=== PATIENT | female | born 1975 | race Caucasian/White ===

== ENCOUNTER → 2017-02-20 | Outpatient (CLI) | payer OTHER ==
[~2017-02-20] MED LIST: CIPROFLOXACIN500 M1 PO; DIPHENHIST50 MG PO; FAMOTIDINE20 MG PO; HYDROCODONE-AP1 EAC6 PO; LOMOTIL TABLET1 EACH PO; NOHOMEMEDICATIONS; NORCO 5-325 TA1 EACH PO; PEPCID20 MG PO; PREDNISONE 20 M20 M1 PO; PREDNISONE 20 M20 MG PO; XANAX 1 MG TABLE1 MG PO; ZOFRAN ODT4 MG PO
== END ==
LOC: M.NUC 07:15
DX: R93.2 Abnormal findings on diagnostic imaging of liver and biliary tract (principal); R11.0 Nausea

== ENCOUNTER 2017-04-06 05:45 | Emergency (ER) | payer OTHER ==
[~2017-04-06] VITALS: Ht 167.6 cm; Wt 90.7 kg
[~2017-04-06 05:45] MED LIST changes: -XANAX 1 MG TABLE1 MG PO
[2017-04-06 06:09] LABS: ABSOLUTE BASOPHILS 0.1 thou/uL (0.0-0.2); ABSOLUTE EOSINOPHILS 0.1 thou/uL (0.0-0.7); ABSOLUTE LYMPHOCYTES 2.9 thou/uL (0.8-5.3); ABSOLUTE MONOCYTES 0.6 thou/uL (0.0-1.2); ABSOLUTE NEUTROPHILS 4.6 thou/uL (1.6-8.1); BASOPHILS 0.7 %; EOSINOPHILS 1.6 %; HEMATOCRIT 44.2 % (37.0-47.0); HEMOGLOBIN 15.3 gm/dL (12.0-15.0); MCH 33.5 pg (26.0-34.0); MCHC 34.7 g/dL (28.0-37.0); MCV 96.7 fL (80.0-100.0); MONOCYTES 7.1 %; MPV 7.3 fl. (7.2-11.1); NUCLEATED RBCS 0 /100WBC; PLATELET COUNT* 271 thou/uL (150-400); POLYS 55.6 %; RBC 4.57 mil/uL (4.20-5.00); RDW-CV 12.6 % (10.5-14.5); WBC 8.2 thou/uL (4.0-11.0)
[2017-04-06 06:18] LABS: ANION GAP 13 mmol/L (7-16); BUN 8 mg/dL (7-18); CALCIUM 9.2 mg/dL (8.5-10.1); CHLORIDE 101 mmol/L (98-107); CO2 22 mmol/L (21-32); CREATININE 0.9 mg/dL (0.6-1.3); GLUCOSE 115 mg/dL (70-99); POTASSIUM 3.3 mmol/L (3.5-5.1); SODIUM 136 mmol/L (136-145)
[2017-04-06 06:28] LABS: ALBUMIN 4.2 g/dL (3.4-5.0); ALKALINE PHOSPHATASE 72 U/L (46-116); LIPASE 164 U/L (73-393); NT-PRO BRAIN NAT PEPTIDE 12 pg/mL (<300); SGOT 83 U/L (15-37); SGPT 145 U/L (30-65); TOTAL BILIRUBIN 0.8 mg/dL (<0.1-1.0); TOTAL PROTEIN 7.7 g/dL (6.4-8.2); TROPONIN-I LEVEL <0.06 ng/mL (<0.06)
[2017-04-06] MEDS ORDERED: XANAX 1 MG TABLE1 MG PO (06:47)
[2017-04-06 07:15] VITALS: BP 138/67
--- NOTE | 2017-04-06 15:58 | EKG ---
[place] [address] ELECTROCARDIOGRAM REPORT Name: LOWELLMARTHA KAY Room: [facility]#: [id number] Admission: 04/06/17 Attend Phys: Discharge: 04/06/17 Date of : 75 Report #: [id number] THIS REPORT FOR: //name// [facility] ED Test Date: 2017-04-06 Test Time: 05:49:29 Pat Name: MARTHA ETIENNE Department: Room: Gender: F International [employer]: : 1975 Requested By: Brit Oro Order Number: [id number] MD: Oracio Fregoso Measurements Intervals [place] Rate: 117 P: 68 [place]: 136 QRS: -24 QRSD: 89 T: 20 QT: 331 QTc: 462 Interpretive Statements Sinus tachycardia Probable left atrial enlargement Borderline left axis deviation Probable anterior infarct, old Baseline wander in lead(s) I Compared to ECG 05/18/2016 15:34:44 No significant changes Electronically Signed On 04-06-2017 15:58:24 [employer] by Oracio Fregoso [email or web address] <ELECTRONICALLY SIGNED> By: Oracio Fregoso MD, [facility] 04/06/17 1558 [id number] Oracio Fregoso MD, [facility] /EPI
== END 2017-04-06 07:15 | disposition home or self-care (01) ==
LOC: M.ERS 05:45
PROVIDERS: Emergency Medicine
DX: F41.9 Anxiety disorder, unspecified (principal); F10.99 Alcohol use, unspecified with unspecified alcohol-induced disorder; Z98.890 Other specified postprocedural states

== ENCOUNTER → 2017-07-14 | Outpatient (CLI) | payer OTHER ==
[~2017-07-14] MED LIST changes: +XANAX 1 MG TABLE1 MG PO
== END ==
LOC: M.RAD 14:52
DX: M79.645 Pain in left finger(s) (principal)

== ENCOUNTER 2017-09-17 12:31 | Emergency (ER) | payer OTHER ==
[~2017-09-17] VITALS: Ht 167.6 cm; Wt 79.3 kg
[2017-09-17] MEDS ORDERED: PEPCID20 MG PO (13:14)
[2017-09-17] MEDS ORDERED: PREDNISONE 20 M20 MG PO (13:14)
[2017-09-17 13:39] VITALS: BP 125/67
== END 2017-09-17 13:43 | disposition home or self-care (01) ==
LOC: M.ERS 12:31
DX: R21 Rash and other nonspecific skin eruption (principal); T78.1XXA Other adverse food reactions, not elsewhere classified, initial encounter; F41.9 Anxiety disorder, unspecified; X58.XXXA Exposure to other specified factors, initial encounter

== ENCOUNTER → 2018-11-16 | Outpatient (CLI) | payer OTHER | LOC: M.ULTRA 11-15 12:18 | DX: K76.0 Fatty (change of) liver, not elsewhere classified (principal); R16.0 Hepatomegaly, not elsewhere classified; R19.07 Generalized intra-abdominal and pelvic swelling, mass and lump ==

== ENCOUNTER 2020-01-05 04:39 | Emergency (ER) | payer OTHER ==
[~2020-01-05] VITALS: Ht 165.1 cm; Wt 82.6 kg
[2020-01-05] MEDS ORDERED: PROAIR HFA8.5 GM INH (05:32)
[2020-01-05] MEDS ORDERED: PROMETHAZINE-C473 ML PO (05:32)
[2020-01-05] MEDS ORDERED: PREDNISONE 20 M20 M1 PO (05:32)
[2020-01-05 05:48] LABS: INFLUENZA A ANTIGEN Negative (Negative); INFLUENZA B ANTIGEN Negative (Negative)
[2020-01-05 06:01] VITALS: BP 147/97
== END 2020-01-05 06:02 | disposition home or self-care (01) ==
LOC: M.ERS 04:39
PROVIDERS: Personal Emergency Response Attendant
DX: J06.9 Acute upper respiratory infection, unspecified (principal); Z20.828 Contact with and (suspected) exposure to other viral communicable diseases; Z90.89 Acquired absence of other organs